=== PATIENT | female | born 1970 | race American Indian/Alaskan Native ===

== ENCOUNTER 2017-01-27 13:01 | Emergency (ER) | payer OTHER ==
[2017-01-27 14:10] VITALS: BP 160/101
[2017-01-27 15:01] LABS: Basophils % (Auto) 0.6 % (0.0-1.8); Eosinophils % (Auto) 1.7 % (0.0-4.3); Hematocrit 36.1 % (30.3-42.9); Hemoglobin 12.1 gm/dl (10.1-14.3); Mean Corpuscular HGB Conc 34 % (30-34); Mean Corpuscular Hemoglobin 28 pg (28-32); Mean Corpuscular Volume 84 fl (79-97); Platelet Count 262 K/mm3 (140-440); Red Blood Count 4.28 M/mm3 (3.65-5.03); Red Cell Distribution Width 13.7 % (13.2-15.2); White Blood Count 3.9 K/mm3 (4.5-11.0)
[2017-01-27 15:18] LABS: Albumin 4.1 g/dL (3.9-5); Albumin/Globulin Ratio 1.3 %; Bilirubin,Total 0.3 mg/dL (0.1-1.2); Calcium 9.2 mg/dL (8.4-10.2); Chloride 97.1 mmol/L (98-107); Magnesium 2.2 mg/dL (1.7-2.3); Potassium 4.1 mmol/L (3.6-5.0); Total Protein 7.3 g/dL (6.3-8.2)
== END 2017-01-27 21:20 | disposition left against medical advice (07) ==
LOC: ED 13:01
DX: R51 Headache (principal); R20.0 Anesthesia of skin; Z53.21 Procedure and treatment not carried out due to patient leaving prior to being seen by health care provider
CPT/HCPCS: 36415; 80053; 82140; 83735; 84443; 85025; G0480; 80320

== ENCOUNTER 2017-09-28 13:31 | Outpatient (CLI) | payer OTHER ==
--- NOTE | 2017-09-29 11:16 | Mammography Report ---
BILATERAL DIGITAL SCREENING MAMMOGRAM with CAD: 09/28/17 CLINICAL: Routine screening. COMPARISON:None available. However, a prior mammogram was apparently done at [facility]. FINDINGS: The breasts are mostly fatty.Right parenchymal asymmetries require comparison with the prior mammogram for additional imaging.The left breast is negative. IMPRESSION: Right asymmetries requiring further evaluation. BI-RADS CATEGORY: 0 -- Additional Evaluation Required RECOMMENDATION: Comparison with a previous mammogram. We will attempt to obtain a prior mammogram for comparison. If we do not obtain a prior mammogram within 30 days, a revised report will be issued recommending a recall for additional imaging. Please be advised that the patient should not schedule an appointment for return until adequate time (at least 2 weeks) has passed for us to obtain the prior mammogram. ACR BI-RADS MAMMOGRAPHIC CODES: 0 = Needs additional imaging evaluation; 1 = Negative; 2 = Benign; 3 = Probably benign; 4 = Suspicious; 5 = Malignant; 6 = Known biopsy-proven malignancy COMMENT: 1. Dense breast tissue, i.e., adenosis, fibrocystic changes, etc., may obscure an underlying neoplasm. 2. Approximately 10% of cancers are not detected with mammography. 3. A negative mammography report should not delay biopsy if a clinically suspicious mass is present. COMMENT: Patient follow-up letters are generated via our [employer] application.
== END 2017-09-28 13:32 | disposition home or self-care (01) ==
LOC: MAMMO 13:31
PROVIDERS: ATTEND Family Medicine
DX: Z12.31 Encounter for screening mammogram for malignant neoplasm of breast (principal)
CPT/HCPCS: 77067

== ENCOUNTER 2018-07-20 15:46 | Emergency (ER) | payer OTHER ==
[2018-07-20 15:51] VITALS: BP 151/79
--- NOTE | 2018-07-20 15:54 | Emergency Department Report ---
Blank Doc - Documentation Documentation: This is a 48-year-old female that presents with nausea/vomiting and abdominal pain x9 days. Stated was sent by PCP. This initial assessment/diagnostic orders/clinical plan/treatment(s) is/are subject to change based on patient's health status, clinical progression and re-assessment by fellow clinical providers in the ED. Further treatment and workup at subsequent clinical providers discretion. Patient/guardians urged not to elope from the ED as their condition may be serious if not clinically assessed and managed. Initial orders include: 1- Patient sent to [facility] for further evaluation and treatment 2- labs 3- UA
[2018-07-20 16:33] LABS: Basophils % (Auto) 0.9 % (0.0-1.8); Eosinophils # (Auto) 0.1 K/mm3 (0.0-0.4); Eosinophils % (Auto) 1.9 % (0.0-4.3); Hematocrit 39.2 % (30.3-42.9); Lymphocytes # (Auto) 2.3 K/mm3 (1.2-5.4); Mean Corpuscular HGB Conc 33 % (30-34); Mean Corpuscular Volume 82 fl (79-97); Monocytes # (Auto) 0.3 K/mm3 (0.0-0.8); Monocytes % (Auto) 7.7 % (0.0-7.3); Platelet Count 364 K/mm3 (140-440); Red Blood Count 4.81 M/mm3 (3.65-5.03); Red Cell Distribution Width 14.8 % (13.2-15.2)
[2018-07-20 16:43] LABS: Alanine Aminotransferase 37 units/L (7-56); Albumin 4.3 g/dL (3.9-5); BUN/Creatinine Ratio 6; Blood Urea Nitrogen 7 mg/dL (7-17); Calcium 9.8 mg/dL (8.4-10.2); Hemolysis Index 3
[2018-07-20 16:52] LABS: Bilirubin,Direct < 0.2 mg/dL (0-0.2)
[2018-07-20] MEDS ORDERED: ALUM-MAG HYDROX-SIMETH 200-200-20MG/5ML PO ONE (17:21)
[2018-07-20] MEDS ORDERED: LIDOCAINE VISCOUS 2% PO ONE (17:22)
[2018-07-20] MEDS ORDERED: PEPCID PO ONE (17:22)
--- NOTE | 2018-07-20 19:03 | XRay Report ---
PROCEDURE: Abdominal series. TECHNIQUE: Supine and upright views of the abdomen, PA chest. HISTORY: Abdominal pain. COMPARISONS: None. FINDINGS: The heart and mediastinum appear normal. The lungs are clear and well expanded. There are no pleural effusions. There is no evidence of pneumoperitoneum. The bowel gas pattern is normal. The soft tissue s and regional skeleton are unremarkable. IMPRESSION: Normal abdominal series. This document is electronically signed by John Fulton MD., July 20 2018 07:01:28 PM ET
[2018-07-20 19:14] LABS: Bilirubin,Urine NEG (Negative); Blood,Urine LG (Negative); Color,Urine Yellow (Yellow); Mucus,Urine FEW /HPF; Urobilinogen,Urine < 2.0 mg/dL (<2.0)
[2018-07-20 19:17] LABS: RBC,Urine > 182.0 /HPF (0.0-6.0)
--- NOTE | 2018-07-20 19:20 | Emergency Department Report ---
ED Abdominal Pain HPI - General Chief Complaint: Nausea/Vomiting/Diarrhea Stated Complaint: DOCTOR REFERRAL Time Seen by Provider: 07/20/18 15:52 Source: patient Mode of arrival: Ambulatory Limitations: No Limitations - History of Present Illness Initial Comments: She is a very pleasant 48-year-old -[place] female who comes to the ER complaining of a 9 day history of nausea and epigastric pain. She reports a 7 pound weight loss. Patient is morbidly obese and with diabetes. Patient states that she has a prior history of gastric ulcer and she states that her pain is similar to that pain and she suspects that her use of NSAIDs including Motrin, Goody's and diclofenac have contributed. She uses these for chronic pain. Patient has no epigastric tenderness. She is ambulatory, taking by mouth and nontoxic on exam. She has no fever on admission to the ER. MD Complaint: abdominal pain -: Gradual, week(s) Location: epigastric Severity scale (0 -10): 0 Quality: aching Consistency: intermittent Worsens With: eating Associated Symptoms: nausea Treatments Prior to Arrival: NSAIDs - Related Data Previous Rx's Medication Instructions Recorded Last Taken Type Omeprazole 20 mg PO DAILY #30 tablet. 07/20/18 Unknown Rx Allergies Allergy/AdvReac Type Severity Reaction Status Date / Time Penicillins Allergy Angioedema Verified 01/27/17 14:11 ED Review of Systems ROS: Stated complaint: DOCTOR REFERRAL Other details as noted in HPI Comment: All other systems reviewed and negative ED Past Medical Hx - Past Medical History Previous Medical History?: Yes Hx Hypertension: Yes Hx Diabetes: Yes Hx Psychiatric Treatment: Yes (bipolar) Additional medical history: multiple sclerosis [id number] - Surgical History Past Surgical History?: Yes Additional Surgical History: tubal ligation 1994 - Family History Family history: no significant - Social History Smoking Status: Never Smoker Substance Use Type: None - Medications Home Medications: Home Medications Medication Instructions Recorded Confirmed Last Taken Type Omeprazole 20 mg PO DAILY #30 tablet. 07/20/18 Unknown Rx ED Physical Exam - General Limitations: No Limitations General appearance: alert, in no apparent distress - Head Head exam: Present: normocephalic - Eye Eye exam: Present: normal appearance, PERRL - ENT ENT exam: Present: mucous membranes moist - Neck Neck exam: Present: normal inspection - Respiratory Respiratory exam: Present: normal lung sounds bilaterally - Cardiovascular Cardiovascular Exam: Present: regular rate, tachycardia (100 ON PROVIDER EXAM; MORBIDLY OBESE) - GI/Abdominal GI/Abdominal exam: Present: soft, normal bowel sounds. Absent: distended, tenderness, guarding, rebound, rigid, diminished bowel sounds, hyperactive bowel sounds, hypoactive bowel sounds, organomegaly, mass, bruit, pulsatile mass, hernia - Rectal Rectal exam: Present: deferred - Extremities Exam Extremities exam: Present: normal inspection, full ROM - Back Exam Back exam: Present: normal inspection, full ROM - Neurological Exam Neurological exam: Present: alert, oriented X3, CN II-XII intact, normal gait - Psychiatric Psychiatric exam: Present: normal affect, normal mood - Skin Skin exam: Present: warm, dry, intact ED Course Vital Signs 07/20/18 15:51 Temperature 98.0 F Pulse Rate 121 H Respiratory 16 Rate Blood Pressure 151/79 [Right] O2 Sat by Pulse 97 Oximetry - Reevaluation(s) Reevaluation #1: 07/20/18 19:39 [facility] [place] RX METFORMIN GLIPIZIDE LISINOPRIL NSAIDS PMH DM OBESE HTN G ULCERS MS BIPOLAR Reevaluation #2: 07/20/18 19:39 ON DC PT IS PAINFREE AND VERBALIZES UNDERSTANDING OF DISCHARGE INSTRUCTIONS. ED Medical Decision Making - Lab Data Result diagrams: 07/20/18 16:12 07/20/18 16:18 - Radiology Data Radiology results: report reviewed, image reviewed - Medical Decision Making Labs 07/20/18 07/20/18 07/20/18 16:12 16:12 16:12 WBC 4.5 RBC 4.81 Hgb 13.0 Hct 39.2 MCV 82 MCH 27 L MCHC 33 RDW 14.8 Plt Count 364 Lymph % (Auto) 51.0 H [place] % (Auto) 7.7 H Eos % (Auto) 1.9 Baso % (Auto) 0.9 Lymph # 2.3 [place] # 0.3 Eos # 0.1 Baso # 0.0 Seg Neutrophils % 38.5 L Seg Neutrophils # 1.7 L VBG pH 7.379 Sodium Potassium Chloride Carbon Dioxide Anion Gap BUN Creatinine Estimated GFR BUN/Creatinine Ratio Glucose Calcium Total Bilirubin Direct Bilirubin Indirect Bilirubin AST ALT Alkaline Phosphatase Total Protein Albumin Albumin/Globulin Ratio Lipase HCG, Qual Negative Urine Color Urine Turbidity Urine pH Ur Specific [place] Urine Protein Urine Glucose (UA) Urine Ketones Urine Blood Urine Nitrite Urine Bilirubin Urine Urobilinogen Ur Leukocyte Esterase Urine WBC (Auto) Urine RBC (Auto) U Epithel Cells (Auto) Urine Mucus 07/20/18 07/20/18 16:18 Unknown WBC RBC Hgb Hct MCV MCH MCHC RDW Plt Count Lymph % (Auto) [place] % (Auto) Eos % (Auto) Baso % (Auto) Lymph # [place] # Eos # Baso # Seg Neutrophils % Seg Neutrophils # VBG pH Sodium 137 Potassium 4.2 Chloride 102.8 Carbon Dioxide 20 L Anion Gap 18 BUN 7 Creatinine 1.1 Estimated GFR > 60 BUN/Creatinine Ratio 6 Glucose 124 H Calcium 9.8 Total Bilirubin 0.40 Direct Bilirubin < 0.2 Indirect Bilirubin 0.2 AST 21 ALT 37 Alkaline Phosphatase 153 H Total Protein 7.4 Albumin 4.3 Albumin/Globulin Ratio 1.4 Lipase 18 HCG, Qual Urine Color Yellow Urine Turbidity Slightly-cloudy Urine pH 5.0 Ur Specific [place] 1.012 Urine Protein 100 mg/dl Urine Glucose (UA) Neg Urine Ketones Neg Urine Blood Lg Urine Nitrite Neg Urine Bilirubin Neg Urine Urobilinogen < 2.0 Ur Leukocyte Esterase Neg Urine WBC (Auto) 21.0 H Urine RBC (Auto) > 182.0 U Epithel Cells (Auto) 9.0 Urine Mucus Few Vital Signs 07/20/18 15:51 Temperature 98.0 F Pulse Rate 121 H Respiratory 16 Rate Blood Pressure 151/79 [Right] O2 Sat by Pulse 97 Oximetry XRAY NO FREE AIR UNDER DIAPHRAGM GI COCKTAIL RELIVED PAIN AMBULATORY NON TOXIC TAKING PO WHILE IN ED DISCUSSED PLAN OF CARE WITH PT AND HER SISTER. WILL DC HOME ON BLAND DIET SHE WILL MONITOR HER BLOOD SUGARS PPI DAILY FOLLOW UP WITH GI- PT HAS HAD A COLONOSCOPY BUT NO ENDOSCOPY IN THE PAST. REFERRAL GIVEN Critical care attestation.: If time is entered above; I have spent that time in minutes in the direct care of this critically ill patient, excluding procedure time. ED Disposition Clinical Impression: GERD (gastroesophageal reflux disease) Disposition: DC-01 TO HOME OR SELFCARE Is pt being admited?: No Does the pt Need Aspirin: No Condition: Stable Instructions: Diet for Ulcers and Gastritis (ED), Gastroesophageal Reflux Disease (ED) Additional Instructions: AVOID NSAIDS HYDRATE WELL WITH WATER BLAND DIET BANANA RICE APPLESAUCE TOAST FOLLOW UP WITH GI REFERRAL BELOW Prescriptions: Omeprazole 20 mg PO DAILY #30 tablet. Referrals: [facility] [Primary Care Provider] - 3-5 Days AXEL SNOWDEN MD [Staff Physician] - 3-5 Days Time of Disposition: 19:28
[2018-07-20] MEDS ORDERED: PROTONIX PO ONE (19:28)
== END 2018-07-20 19:38 | disposition home or self-care (01) ==
LOC: ED 15:46
DX: K21.9 Gastro-esophageal reflux disease without esophagitis (principal); I10 Essential (primary) hypertension; E11.9 Type 2 diabetes mellitus without complications; F31.9 Bipolar disorder, unspecified; Z88.0 Allergy status to penicillin
CPT/HCPCS: 36415; 74022; 80048; 80076; 81001; 82805; 83690; 84703; 85025

== ENCOUNTER 2021-03-14 12:50 | Outpatient (CLI) | payer OTHER | END 2021-03-14 12:51 | disposition home or self-care (01) | LOC: MAMMO 12:50 | PROVIDERS: ATTEND General Practice | DX: Z12.31 Encounter for screening mammogram for malignant neoplasm of breast (principal) | CPT/HCPCS: 77067 ==